=== PATIENT | female | born 1930 | race Caucasian/White ===

== ENCOUNTER 2018-08-14 10:47 | Inpatient (IN) | payer MEDICARE ==
[2018-08-14] MEDS ORDERED: SODIUM CHLORIDE 0.9% 1,000 ML IV STA (11:19)
[2018-08-14] MEDS ORDERED: SODIUM CHLORIDE 0.9% 500 ML 500 ML IV STA (11:19)
--- NOTE | 2018-08-14 11:22 | ED ---
General Adult HPI - General Chief complaint: Weakness Stated complaint: Weakness/Pain Time Seen by Provider: 08/14/18 10:50 Source: family, RN notes reviewed Mode of arrival: EMS Limitations: altered mental status - History of Present Illness Initial comments: Patient's an 87-year-old female presented to the emergency room today by EMS, the chief complaint of increased weakness past week. Family at bedside stating that they've noticed that she's had a difficult time with ambulation this past week. Patient does admit that she's had some soreness to her feet. She does admit that she's noticed that she has had some increased weakness with ambulation and trying to get around. Patient denies any pain at this time. Denies any recent cough or congestion. Patient denies any recent fever, chills, shortness of breath, chest pain, back pain, abdominal pain, nausea or vomiting, numbness or tingling, headaches or visual changes, or any other complaints. - Related Data Home Medications Medication Instructions Recorded Confirmed Acetaminophen Tab [Tylenol] 500 mg PO DAILY 08/14/18 08/14/18 Cyanocobalamin (Vitamin B-12) 2,500 mcg PO DAILY 08/14/18 08/14/18 [Vitamin B12] Levothyroxine Sodium [Synthroid] 50 mcg PO DAILY 08/14/18 08/14/18 Lisinopril 20 mg PO DAILY 08/14/18 08/14/18 Sertraline [Zoloft] 25 mg PO DAILY 08/14/18 08/14/18 Allergies Allergy/AdvReac Type Severity Reaction Status Date / Time No Known Allergies Allergy Verified 08/14/18 11:10 Review of Systems ROS Statement: Those systems with pertinent positive or pertinent negative responses have been documented in the HPI. ROS Other: All systems not noted in ROS Statement are negative. Past Medical History Past Medical History: Hypertension, Memory Impairment, Thyroid Disorder History of Any Multi-Drug Resistant Organisms: None Reported Past Surgical History: Hernia Repair, Hysterectomy Additional Past Surgical History / Comment(s): vein stripping, uterine prolapse repair Past Psychological History: Anxiety Smoking Status: Never smoker Past Alcohol Use History: None Reported Past Drug Use History: None Reported General Exam - General Exam Comments Initial Comments: General: The patient is awake and alert, in no distress, and does not appear acutely ill. Eye: Pupils are equal, round and reactive to light, extra-ocular movements are intact. No nystagmus. There is normal conjunctiva bilaterally. No signs of icterus. Ears, nose, mouth and throat: There are moist mucous membranes and no oral lesions. Neck: The neck is supple Cardiovascular: There is a regular rate and rhythm. No murmur, rub or gallop is appreciated. Respiratory: Lungs are clear to auscultation, respirations are non-labored, breath sounds are equal. No wheezes, stridor, rales, or rhonchi. Gastrointestinal: Admits soft nontender. Musculoskeletal: Normal ROM, no tenderness. Strength 5/5. Sensation intact. Radial/pedal pulses equal bilaterally 2+. Neurological: A&O x 3. CN II-XII intact, There are no obvious motor or sensory deficits. Coordination appears grossly intact. Speech is normal. Skin: Skin is warm and dry and no rashes or lesions are noted. Psychiatric: Cooperative, appropriate mood & affect, normal judgment. Limitations: altered mental status Course Vital Signs 08/14/18 10:51 Temperature 98 F Pulse Rate 74 Respiratory 18 Rate Blood Pressure 120/85 O2 Sat by Pulse 96 Oximetry EKG Findings - EKG Comments: EKG Findings:: EKG performed at 1055: Shows A. fib at 88 bpm. QRS 102. QT/QTc 402/486. No acute ST changes. No previous EKG to compare. Medical Decision Making - Medical Decision Making Patient's labs been reviewed does show evidence for urinary tract infection. Patient does admit to increased weakness this past week with difficult time with ambulation. Patient's EKG shows evidence for atrophic relation. No old EKG to compare. Patient started on antibiotics Rocephin here in the emergency room for UTI. Started on low-dose heparin for A. fib. Case discussed with attending physician Dr. Alvarado who did discuss case with admitting physician Dr. Emanuel with the patient consult cardiology. - Lab Data Result diagrams: 08/14/18 11:03 08/14/18 11:03 Lab Results 08/14/18 08/14/18 08/14/18 Range/Units 11:03 11:03 11:03 WBC 9.2 (3.8-10.6) k/uL RBC 3.38 L (3.80-5.40) m/uL Hgb 11.6 (11.4-16.0) gm/dL Hct 37.4 (34.0-46.0) % MCV 110.7 H (80.0-100.0) fL MCH 34.2 (25.0-35.0) pg MCHC 30.9 L (31.0-37.0) g/dL RDW 14.7 (11.5-15.5) % Plt Count 424 (150-450) k/uL Neutrophils % 83 % Lymphocytes % 7 % Monocytes % 7 % Eosinophils % 1 % Basophils % 0 % Neutrophils # 7.7 (1.3-7.7) k/uL Lymphocytes # 0.6 L (1.0-4.8) k/uL Monocytes # 0.7 (0-1.0) k/uL Eosinophils # 0.1 (0-0.7) k/uL Basophils # 0.0 (0-0.2) k/uL Manual Slide Review Performed Macrocytosis Marked PT 10.3 (9.0-12.0) sec INR 1.0 (<1.2) APTT 22.4 (22.0-30.0) sec Sodium (137-145) mmol/L Potassium (3.5-5.1) mmol/L Chloride (98-107) mmol/L Carbon Dioxide (22-30) mmol/L Anion Gap mmol/L BUN (7-17) mg/dL Creatinine (0.52-1.04) mg/dL Est GFR (CKD-EPI)AfAm (>60 ml/min/1.73 sqM) Est GFR (CKD-EPI)NonAf (>60 ml/min/1.73 sqM) Glucose (74-99) mg/dL Calcium (8.4-10.2) mg/dL Total Bilirubin (0.2-1.3) mg/dL AST (14-36) U/L ALT (9-52) U/L Alkaline Phosphatase (38-126) U/L Total Creatine Kinase 355 H (30-135) U/L CK-MB (CK-2) 5.2 H (0.0-2.4) ng/mL CK-MB (CK-2) Rel Index 1.5 Troponin I 0.012 (0.000-0.034) ng/mL Total Protein (6.3-8.2) g/dL Albumin (3.5-5.0) g/dL Urine Color Urine Appearance (Clear) Urine pH (5.0-8.0) Ur Specific [place] (1.001-1.035) Urine Protein (Negative) Urine Glucose (UA) (Negative) Urine Ketones (Negative) Urine Blood (Negative) Urine Nitrite (Negative) Urine Bilirubin (Negative) Urine Urobilinogen (<2.0) mg/dL Ur Leukocyte Esterase (Negative) Urine WBC (0-5) /hpf Triple Phos Crystals (None) /hpf Amorphous Sediment (None) /hpf Urine Bacteria (None) /hpf Urine Mucus (None) /hpf 08/14/18 08/14/18 Range/Units 11:03 11:40 WBC (3.8-10.6) k/uL RBC (3.80-5.40) m/uL Hgb (11.4-16.0) gm/dL Hct (34.0-46.0) % MCV (80.0-100.0) fL MCH (25.0-35.0) pg MCHC (31.0-37.0) g/dL RDW (11.5-15.5) % Plt Count (150-450) k/uL Neutrophils % % Lymphocytes % % Monocytes % % Eosinophils % % Basophils % % Neutrophils # (1.3-7.7) k/uL Lymphocytes # (1.0-4.8) k/uL Monocytes # (0-1.0) k/uL Eosinophils # (0-0.7) k/uL Basophils # (0-0.2) k/uL Manual Slide Review Macrocytosis PT (9.0-12.0) sec INR (<1.2) APTT (22.0-30.0) sec Sodium 138 (137-145) mmol/L Potassium 4.7 (3.5-5.1) mmol/L Chloride 106 (98-107) mmol/L Carbon Dioxide 25 (22-30) mmol/L Anion Gap 7 mmol/L BUN 16 (7-17) mg/dL Creatinine 0.56 (0.52-1.04) mg/dL Est GFR (CKD-EPI)AfAm >90 (>60 ml/min/1.73 sqM) Est GFR (CKD-EPI)NonAf 83 (>60 ml/min/1.73 sqM) Glucose 97 (74-99) mg/dL Calcium 8.9 (8.4-10.2) mg/dL Total Bilirubin 1.3 (0.2-1.3) mg/dL AST 30 (14-36) U/L ALT 21 (9-52) U/L Alkaline Phosphatase 48 (38-126) U/L Total Creatine Kinase (30-135) U/L CK-MB (CK-2) (0.0-2.4) ng/mL CK-MB (CK-2) Rel Index Troponin I (0.000-0.034) ng/mL Total Protein 5.8 L (6.3-8.2) g/dL Albumin 3.1 L (3.5-5.0) g/dL Urine Color Yellow Urine Appearance Turbid H (Clear) Urine pH 8.0 (5.0-8.0) Ur Specific [place] 1.014 (1.001-1.035) Urine Protein Trace H (Negative) Urine Glucose (UA) Negative (Negative) Urine Ketones 1+ H (Negative) Urine Blood Negative (Negative) Urine Nitrite Positive H (Negative) Urine Bilirubin Negative (Negative) Urine Urobilinogen 2.0 (<2.0) mg/dL Ur Leukocyte Esterase Large H (Negative) Urine WBC 10 H (0-5) /hpf Triple Phos Crystals Rare H (None) /hpf Amorphous Sediment Occasional H (None) /hpf Urine Bacteria Rare H (None) /hpf Urine Mucus Rare H (None) /hpf Disposition Clinical Impression: A-fib, UTI (urinary tract infection), Weakness Disposition: ADMITTED IP TO THIS HOSP Condition: Stable Is patient prescribed a controlled substance at d/c from ED?: No Referrals: Jose Espino MD [Primary Care Provider] - 1-2 days Time of Disposition: 13:34
[2018-08-14 11:42] LABS: ALT 21 U/L (9-52); AST 30 U/L (14-36); Albumin 3.1 g/dL (3.5-5.0); Alkaline Phosphatase 48 U/L (38-126); Anion Gap 7 mmol/L; Blood Urea Nitrogen 16 mg/dL (7-17); Calcium 8.9 mg/dL (8.4-10.2); Carbon Dioxide 25 mmol/L (22-30); Chloride 106 mmol/L (98-107); Glucose 97 mg/dL (74-99); Potassium 4.7 mmol/L (3.5-5.1); Sodium 138 mmol/L (137-145); Total Bilirubin 1.3 mg/dL (0.2-1.3); Total Protein 5.8 g/dL (6.3-8.2)
[2018-08-14 11:45] LABS: Partial Thromboplastin Time 22.4 sec (22.0-30.0); Prothrombin Time 10.3 sec (9.0-12.0)
[2018-08-14 11:52] LABS: Basophils % (A) 0 %; Eosinophils # (A) 0.1 k/uL (0-0.7); Eosinophils % (A) 1 %; HCT 37.4 % (34.0-46.0); HGB 11.6 gm/dL (11.4-16.0); Lymphocytes # (A) 0.6 k/uL (1.0-4.8); Lymphocytes % (A) 7 %; MCH 34.2 pg (25.0-35.0); MCHC 30.9 g/dL (31.0-37.0); MCV 110.7 fL (80.0-100.0); Macrocytosis Marked; Mean Platelet Volume 7.3; Monocytes # (A) 0.7 k/uL (0-1.0); Monocytes % (A) 7 %; Neutrophils # (A) 7.7 k/uL (1.3-7.7); Neutrophils % (A) 83 %; Platelet Count 424 k/uL (150-450); RBC 3.38 m/uL (3.80-5.40); RDW 14.7 % (11.5-15.5); WBC 9.2 k/uL (3.8-10.6)
[2018-08-14 11:59] LABS: Creatine Kinase MB 5.2 ng/mL (0.0-2.4); Troponin I 0.012 ng/mL (0.000-0.034)
[2018-08-14 12:35] LABS: Amorphous Sediment,Urine Occasional /hpf; Appearance,Urine Turbid (Clear); Bacteria,Urine Rare /hpf; Bilirubin,Urine Negative (Negative); Blood,Urine Negative (Negative); Color,Urine Yellow; Glucose,Urine (UA) Negative (Negative); Ketones,Urine 1+ (Negative); Leukocyte Esterase,Urine Large (Negative); Mucus,Urine Rare /hpf; Nitrite,Urine Positive (Negative); Protein,Urine Trace (Negative); Specific Gravity,Urine 1.014 (1.001-1.035); Triple Phosphate Crystal,Urine Rare /hpf
[2018-08-14] MEDS ORDERED: ACETAMINOPHEN TAB 325 MG TAB PO STA (12:53)
--- NOTE | 2018-08-14 12:55 | XR ---
EXAMINATION TYPE: XR chest 2V DATE OF EXAM: 08/14/2018 HISTORY: weakness. REFERENCE: NONE. FINDINGS: The lungs are overinflated. There are senescent changes throughout the lungs. The heart is enlarged. Pleural spaces are clear. IMPRESSION: 1. COPD. 2. CARDIOMEGALY. 3. INTERSTITIAL CHANGE. THIS IS LIKELY CHRONIC.
--- NOTE | 2018-08-14 13:20 | XR ---
EXAMINATION TYPE: XR Hip LT and AP Pelvis , 3 VIEWS DATE OF EXAM ORDERED: 08/14/2018 HISTORY: Pain. COMPARISON: None. FINDINGS: There are degenerative changes in the lower lumbar spine as well as in both hips. No fractu re or dislocation is identified. IMPRESSION: 1. NO ACUTE OSSEOUS LESION. 2. DEGENERATIVE CHANGE.
[2018-08-14] MEDS ORDERED: ACETAMINOPHEN TAB 325 MG TAB PO PRN ×2 (13:34→13:38)
[2018-08-14] MEDS ORDERED: SODIUM CHLORIDE 0.9% 1,000 ML IV ONE (13:34)
[2018-08-14] MEDS ORDERED: NALOXONE 0.4 MG/ML 1 ML VIAL IV PRN (13:37)
[2018-08-14] MEDS ORDERED: HEPARIN SODIUM,PORCINE 5,000 UNIT/ML 1 ML VIAL IV ONE (16:44)
[2018-08-14] MEDS ORDERED: HEPARIN SOD,PORK IN 0.45% NACL 25,000 UNIT in 0.45% NACL 1 250ML.BAG IV SCH (16:45)
[2018-08-14 18:19] LABS: Creatine Kinase 259 U/L (30-135)
[2018-08-14 18:33] LABS: Creatine Kinase MB 3.8 ng/mL (0.0-2.4); Troponin I <0.012 ng/mL (0.000-0.034)
[2018-08-14 23:45] LABS: Creatine Kinase 241 U/L (30-135)
[2018-08-14 23:58] LABS: Creatine Kinase MB 3.1 ng/mL (0.0-2.4); Troponin I <0.012 ng/mL (0.000-0.034)
[2018-08-15 05:41] LABS: Basophils % (A) 0 %; Eosinophils # (A) 0.2 k/uL (0-0.7); Eosinophils % (A) 2 %; HCT 39.7 % (34.0-46.0); HGB 12.4 gm/dL (11.4-16.0); Lymphocytes # (A) 0.7 k/uL (1.0-4.8); Lymphocytes % (A) 8 %; MCH 34.8 pg (25.0-35.0); MCHC 31.2 g/dL (31.0-37.0); MCV 111.8 fL (80.0-100.0); Mean Platelet Volume 7.1; Monocytes # (A) 0.5 k/uL (0-1.0); Monocytes % (A) 5 %; Neutrophils # (A) 7.6 k/uL (1.3-7.7); Neutrophils % (A) 84 %; Platelet Count 434 k/uL (150-450); RBC 3.55 m/uL (3.80-5.40); RDW 14.7 % (11.5-15.5); WBC 9.1 k/uL (3.8-10.6)
[2018-08-15 05:48] LABS: ALT 28 U/L (9-52); AST 22 U/L (14-36); Alkaline Phosphatase 60 U/L (38-126); Anion Gap 7 mmol/L; Blood Urea Nitrogen 13 mg/dL (7-17); Calcium 8.9 mg/dL (8.4-10.2); Carbon Dioxide 27 mmol/L (22-30); Chloride 104 mmol/L (98-107); Cholesterol 169 mg/dL (<200); Glucose 100 mg/dL (74-99); HDL Cholesterol 49 mg/dL (40-60); LDL Cholesterol,Calculated 103 mg/dL (0-99); Macrocytosis Marked; Sodium 138 mmol/L (137-145); Total Protein 5.8 g/dL (6.3-8.2); Triglycerides 84 mg/dL (<150)
[2018-08-15] MEDS ORDERED: LEVOTHYROXINE 50 MCG TAB PO SCH (06:30)
[2018-08-15] MEDS: CYANOCOBALAMIN 500 MCG TAB PO SCH (08:16)
[2018-08-15] MEDS: LISINOPRIL 20 MG TAB PO SCH (08:16)
[2018-08-15] MEDS ORDERED: SERTRALINE 25 MG TAB PO SCH (09:00)
--- NOTE | 2018-08-15 09:56 | P.CRDCN ---
History of Present Illness Consult date: 08/15/18 Requesting physician: Nahun Emanuel Reason for Consult (text): Arrhythmia Chief complaint: Weakness History of present illness: This is an 87-year-old female most of the history was obtained from the medical record as she is quite confused this morning. Apparently the patient was brought to the emergency room because of increased weakness, family also noticed that she was having a difficult time with ambulation in the past week. A cardiology consultation was initially requested on this patient because of atrial fibrillation. The initial EKG was interpreted as the atrial fibrillation in the emergency room, appears to be in normal sinus rhythm with PACs evidence of sinus arrhythmia and intermittently on the rhythm strips it appears that the patient may have a Wenckebach rhythm. Her initial EKG on presentation here showed a normal sinus rhythm with PACs. Chest x-ray showed COPD, cardiomegaly, interstitial change which is likely chronic. Blood pressure on arrival here 120/80, heart rate in the 70s, 96% on room air. White blood cell count 9.1, hemoglobin 12.4, platelet count 434. Sodium 138, potassium 4.0, BUN 13, creatinine 0.5. Troponins are negative 3. Urinalysis shows positive UTI. At the time of my examination this morning, patient is quite confused, she knows she is in the hospital but is unsure of why she is here. She states that she is just here to visit with some of her friends. She denies any shortness of breath, no weakness, no palpitations or chest discomfort. Past Medical History Past Medical History: Hypertension, Memory Impairment, Thyroid Disorder History of Any Multi-Drug Resistant Organisms: None Reported Past Surgical History: Hernia Repair, Hysterectomy Additional Past Surgical History / Comment(s): vein stripping, uterine prolapse repair, 3 weeks ago outpatient cyst/hemmorhoid removal Past Anesthesia/Blood Transfusion Reactions: No Reported Reaction Past Psychological History: Anxiety Smoking Status: Never smoker Past Alcohol Use History: None Reported Past Drug Use History: None Reported - Past Family History Father Additional Family Medical History / Comment(s): Colon cancer Sister(s) Additional Family Medical History / Comment(s): Colon cancer & another sister lung cancer Medications and Allergies Home Medications Medication Instructions Recorded Confirmed Type Acetaminophen Tab [Tylenol] 500 mg PO DAILY 08/14/18 08/14/18 History Cyanocobalamin (Vitamin B-12) 2,500 mcg PO DAILY 08/14/18 08/14/18 History [Vitamin B12] Levothyroxine Sodium [Synthroid] 50 mcg PO DAILY 08/14/18 08/14/18 History Lisinopril 20 mg PO DAILY 08/14/18 08/14/18 History Sertraline [Zoloft] 25 mg PO DAILY 08/14/18 08/14/18 History Allergies Allergy/AdvReac Type Severity Reaction Status Date / Time No Known Allergies Allergy Verified 08/14/18 11:10 Physical Exam Vitals: Vital Signs Temp Pulse Pulse Resp BP BP Pulse Ox 08/15/18 08:00 98.6 F 72 16 152/86 93 L 08/15/18 04:00 97.0 F L 75 18 167/74 97 08/15/18 00:00 97.4 F L 62 18 140/62 95 08/14/18 20:00 97.7 F 70 18 120/70 98 08/14/18 17:50 97 16 129/62 93 L 08/14/18 17:15 64 18 140/97 98 08/14/18 14:00 78 12 118/73 96 08/14/18 13:30 78 14 130/61 98 08/14/18 12:30 58 L 18 130/85 97 08/14/18 12:00 63 14 117/58 97 08/14/18 11:30 68 10 L 106/79 98 08/14/18 11:00 110 H 20 120/85 93 L 08/14/18 10:51 98 F 74 18 120/85 96 Intake and Output 08/14/18 08/15/18 08/15/18 22:59 06:59 14:59 Intake Total 360 709.313 Output Total 300 Balance 360 409.313 Intake: IV 600 0.9 600 Intake, IV Titration 109.313 Amount Heparin Sod,Pork in 0.45% 109.313 NaCl 25,000 unit In 0.45 % NaCl 1 250ml.bag @ 12 UNITS/KG/HR 7.62 mls/hr IV .Q24H [facility] Rx#: [id number] Oral 360 Output: Urine 300 Other: Voiding Method Toilet Toilet # Voids 2 2 Weight 61.7 kg Assessment and plan #1 symptoms of progressive weakness, mental status changes, no evidence of any syncopal episodes. Symptoms could be secondary to UTI #2 arrhythmia, EKG initially interpreted as atrial fibrillation, it appears patient is in normal sinus rhythm with PACs, intermittent Wenchebach rhythm. #3 hypothyroidism #4 hypertension Plan EKGs and rhythm strips have been reviewed, no evidence of any atrial fibrillation. We will check a TSH level and obtain an echocardiogram with Doppler study. Discontinue IV heparin. DNP note has been reviewed, I agree with a documented findings and plan of care. Patient was seen and examined. Results 08/15/18 05:28 08/15/18 05:28 Cardiac Enzymes 08/14/18 08/14/18 08/14/18 Range/Units 11:03 11:03 17:45 AST 30 (14-36) U/L CK-MB (CK-2) 5.2 H 3.8 H (0.0-2.4) ng/mL Troponin I 0.012 <0.012 (0.000-0.034) ng/mL 08/14/18 08/15/18 Range/Units 22:41 05:28 AST 22 (14-36) U/L CK-MB (CK-2) 3.1 H (0.0-2.4) ng/mL Troponin I <0.012 (0.000-0.034) ng/mL Coagulation 08/14/18 08/14/18 08/15/18 Range/Units 11:03 22:41 05:28 PT 10.3 (9.0-12.0) sec APTT 22.4 30.4 H 32.5 H (22.0-30.0) sec Lipids 08/15/18 Range/Units 05:28 Triglycerides 84 (<150) mg/dL Cholesterol 169 (<200) mg/dL HDL Cholesterol 49 (40-60) mg/dL CBC 08/14/18 08/15/18 Range/Units 11:03 05:28 WBC 9.2 9.1 (3.8-10.6) k/uL RBC 3.38 L 3.55 L (3.80-5.40) m/uL Hgb 11.6 12.4 (11.4-16.0) gm/dL Hct 37.4 39.7 (34.0-46.0) % Plt Count 424 434 (150-450) k/uL Comprehensive Metabolic Panel 08/14/18 08/15/18 Range/Units 11:03 05:28 Sodium 138 138 (137-145) mmol/L Potassium 4.7 4.0 (3.5-5.1) mmol/L Chloride 106 104 (98-107) mmol/L Carbon Dioxide 25 27 (22-30) mmol/L BUN 16 13 (7-17) mg/dL Creatinine 0.56 0.53 (0.52-1.04) mg/dL Glucose 97 100 H (74-99) mg/dL Calcium 8.9 8.9 (8.4-10.2) mg/dL AST 30 22 (14-36) U/L ALT 21 28 (9-52) U/L Alkaline Phosphatase 48 60 (38-126) U/L Total Protein 5.8 L 5.8 L (6.3-8.2) g/dL Albumin 3.1 L 3.0 L (3.5-5.0) g/dL Current Medications Generic Name Dose Route Start Last Admin Trade Name Oscarq PRN Reason Stop Dose Admin Acetaminophen 650 mg 08/14/18 13:38 Tylenol Tab PO Q6HR PRN Pain Cyanocobalamin 2,500 mcg 08/15/18 09:00 08/15/18 08:16 Vitamin B-12 PO 2,500 mcg DAILY [facility] Administration Heparin Sodium/Sodium Chloride 250 mls @ 7.62 mls/hr 08/14/18 16:45 08/15/18 05:49 25,000 unit/ Sodium Chloride IV 18 units/kg/hr .Q24H [facility] 11.43 mls/hr Titration Protocol 12 UNITS/KG/HR Levothyroxine Sodium 50 mcg 08/15/18 06:30 08/15/18 05:54 Synthroid PO 50 mcg DAILY@0630 [facility] Administration Lisinopril 20 mg 08/15/18 09:00 08/15/18 08:16 Zestril PO 20 mg DAILY [facility] Administration Naloxone HCl 0.2 mg 08/14/18 13:37 Narcan IV Q2M PRN Opioid Reversal Sertraline HCl 25 mg 08/15/18 09:00 08/15/18 08:16 Zoloft PO 25 mg DAILY [facility] Administration Intake and Output 08/14/18 08/15/18 08/15/18 22:59 06:59 14:59 Intake Total 360 709.313 Output Total 300 Balance 360 409.313 Intake: IV 600 0.9 600 Intake, IV Titration 109.313 Amount Heparin Sod,Pork in 0.45% 109.313 NaCl 25,000 unit In 0.45 % NaCl 1 250ml.bag @ 12 UNITS/KG/HR 7.62 mls/hr IV .Q24H [facility] Rx#: [id number] Oral 360 Output: Urine 300 Other: Voiding Method Toilet Toilet # Voids 2 2 Weight 61.7 kg 08/15/18 05:28 08/15/18 05:28
[2018-08-15 12:29] LABS: T4, Free (Free Thyroxine) 1.66 ng/dL (0.78-2.19)
--- NOTE | 2018-08-15 16:59 | ECHOF ---
Referral Reason:arrythmia MEASUREMENTS -------- HEIGHT: 167.6 cm WEIGHT: 61.7 kg BP: 152/86 IVSd: 1.1 cm (0.6 - 1.1) LVIDd: 4.3 cm (3.9 - 5.3) LVPWd: 1.0 cm (0.6 - 1.1) IVSs: 1.7 cm LVIDs: 2.9 cm LVPWs: 1.5 cm LA Diam: 3.5 cm (2.7 - 3.8) RVIDd: 3.6 cm (< 3.3) LAESV Index (A-L): 35.44 ml/m Ao Diam: 3.2 cm (2.0 - 3.7) AV Cusp: 2.0 cm (1.5 - 2.6) EPSS: 0.4 cm MV E Matias: 0.98 m/s MV DecT: 333 ms MV A Matias: 1.01 m/s MV E/A Ratio: 0.97 AV maxP.74 mmHg AV meanP.32 mmHg RAP: 5.00 mmHg RVSP: 34.51 mmHg MV EF SLOPE: 86.65 mm/s (70 - 150) MV EXCURSION: 13.99 mm (> 18.000) FINDINGS -------- Sinus rhythm with extra systolic beats. This was a technically good study. The left ventricular size is normal. There is borderline concentric left ventricular hypertrophy. Overall left ventricular systolic function is normal with, an EF between 55 - 60 %. The right ventricle is mildly enlarged. LA is moderately dilated 34-39 ml/m2 The right atrium is normal in size. There is mild aortic valve sclerosis. Mild mitral regurgitation is present. Moderate to severe tricuspid regurgitation present. There is mild pulmonary hypertension. The rig ht ventricular systolic pressure, as measured by Doppler, is 34.51mmHg. Trace/mild (physiologic) pulmonic regurgitation. The aortic root size is normal. Normal inferior vena cava with normal inspiratory collapse consistent with estimated right atrial pre ssure of 5 mmHg. There is no pericardial effusion. CONCLUSIONS -------- 1. Sinus rhythm with extra systolic beats. 2. This was a technically good study. 3. The left ventricular size is normal. 4. There is borderline concentric left ventricular hypertrophy. 5. Overall left ventricular systolic function is normal with, an EF between 55 - 60 %. 6. The right ventricle is mildly enlarged. 7. LA is moderately dilated 34-39 ml/m2 8. The right atrium is normal in size. 9. There is mild aortic valve sclerosis. 10. Mild mitral regurgitation is present. 11. Moderate to severe tricuspid regurgitation present. 12. There is mild pulmonary hypertension. 13. The right ventricular systolic pressure, as measured by Doppler, is 34.51mmHg. 14. Trace/mild (physiologic) pulmonic regurgitation. 15. The aortic root size is normal. 16. Normal inferior vena cava with normal inspiratory collapse consistent with estimated right atrial pressure of 5 mmHg. 17. There is no pericardial effusion. [place]: Filomena Scruggs RDCS
--- NOTE | 2018-08-16 00:17 | P.HPIM ---
History of Present Illness H&P Date: 08/15/18 Chief Complaint: Difficulty walking History of presenting complaint: This is a pleasant 87-year-old patient who follows with Dr. Sherman. Patient's family members are present with her. Patient chronic stable medical conditions include hypertension, dementia, hypothyroid, arthritis. Patient has been noticed to be walking slower and slower. Also has been having urinary incontinence. Appetite is last 1 week has gone on a bit. Patient is able to answer simple questions. But otherwise rather confused. No fever or chills reported. Patient was initially thought to have atrial fibrillation but is not part of Wenckebach phenomena as per cardiology. Patient does have pain in her feet. And refuses to wear any other footwear except for her crocs. She is incontinent of urine. Bowels are fine. Some baseline anxiety. No depression. Patient has been active all her life. Review of systems: GEN.: None EYES: None HEENT: None NECK: None RESPIRATORY: None CARDIOVASCULAR: None GASTROINTESTINAL: None GENITOURINARY: Incontinent MUSCULOSKELETAL: Pain in the joints especially feet LYMPHATICS: None HEMATOLOGICAL: None PSYCHIATRY: Forgetful NEUROLOGICAL: None Past medical history: Essential hypertension, dementia, hypothyroid, B12 deficiency, anxiety, osteoarthritis Family history: Colon cancer Physical examination: VITAL SIGNS: 98, 74, 18, 120/85, 96% room air GENERAL: Average built, laying in bed, playing with a blanket, comfortable. EYES: Pupils equal. Conjunctiva normal. HEENT: External appearance of nose and ears normal, oral cavity grossly normal. NECK: JVD not raised; masses not palpable. HEART: First and second heart sounds are normal; no edema. LUNGS: Respiratory rate normal; clear to auscultation. ABDOMEN: Soft, nontender, liver spleen not palpable, no masses palpable. LYMPHATICS: No lymph nodes palpable in the axilla and neck. PSYCH: Patient also name. Does not know where she is a Y she is here, does not know the year or the seasonl. NEUROLOGICAL: Cranial nerves grossly intact; no facial asymmetry, power and sensation grossly intact MUSCULOSKELETAL: Evidence of severe OA special in the feet, with a high arch, hammertoes. Investigations: Reviewed in the clinical context White count 9.2, hemoglobin 11.6, potassium 4.7, 2-D echo-year 50-60%, moderate to severe tricuspid regurgitation Troponin 3 negative, EKG-personally reviewed by me shows Wenckebach phenomena TSH 6.450, UA positive Assessment: -Severe cognitive impairment suspect underlying Alzheimer's dementia late onset type. -Wenckebach phenomena. -Moderate to severe tricuspid regurgitation nondramatic -Chronic B12 deficiency -Essential hypertension -Hypothyroid with under replacement -Chronic urinary incontinence -Chronic progressively worsening gait dysfunction due to severe osteoarthritis of the feet -Acute UTI likely from cystitis Plan: Had a lengthy discussion with the patient's family members. We'll check patient 's computed tomography scan of the brain rule out any subdural hematoma. Will DC patient's Zoloft. Did discuss about patient's footwear which is important. Spoke with Aleena the social insurance analyst is looking into inpatient rehab. Encourage oral intake. Add antibiotics. PT OT to evaluate Past Medical History Past Medical History: Hypertension, Memory Impairment, Thyroid Disorder History of Any Multi-Drug Resistant Organisms: None Reported Past Surgical History: Hernia Repair, Hysterectomy Additional Past Surgical History / Comment(s): vein stripping, uterine prolapse repair, 3 weeks ago outpatient cyst/hemmorhoid removal Past Anesthesia/Blood Transfusion Reactions: No Reported Reaction Past Psychological History: Anxiety Smoking Status: Never smoker Past Alcohol Use History: None Reported Past Drug Use History: None Reported - Past Family History Father Additional Family Medical History / Comment(s): Colon cancer Sister(s) Additional Family Medical History / Comment(s): Colon cancer & another sister lung cancer Medications and Allergies Home Medications Medication Instructions Recorded Confirmed Type Acetaminophen Tab [Tylenol] 500 mg PO DAILY 08/14/18 08/14/18 History Cyanocobalamin (Vitamin B-12) 2,500 mcg PO DAILY 08/14/18 08/14/18 History [Vitamin B12] Levothyroxine Sodium [Synthroid] 50 mcg PO DAILY 08/14/18 08/14/18 History Lisinopril 20 mg PO DAILY 08/14/18 08/14/18 History Sertraline [Zoloft] 25 mg PO DAILY 08/14/18 08/14/18 History Allergies Allergy/AdvReac Type Severity Reaction Status Date / Time No Known Allergies Allergy Verified 08/14/18 11:10 Physical Exam Vitals: Vital Signs Temp Pulse Pulse Resp BP BP Pulse Ox 08/15/18 11:31 69 08/15/18 11:17 69 16 162/77 94 L 08/15/18 08:00 98.6 F 72 16 152/86 93 L 08/15/18 04:00 97.0 F L 75 18 167/74 97 08/15/18 00:00 97.4 F L 62 18 140/62 95 08/14/18 20:00 97.7 F 70 18 120/70 98 08/14/18 17:50 97 16 129/62 93 L 08/14/18 17:15 64 18 140/97 98 Intake and Output 08/14/18 08/15/18 08/15/18 22:59 06:59 14:59 Intake Total 360 709.313 360 Output Total 300 300 Balance 360 409.313 60 Intake: IV 600 0.9 600 Intake, IV Titration 109.313 Amount Heparin Sod,Pork in 0.45% 109.313 NaCl 25,000 unit In 0.45 % NaCl 1 250ml.bag @ 12 UNITS/KG/HR 7.62 mls/hr IV .Q24H [facility] Rx#: [id number] Oral 360 360 Output: Urine 300 300 Other: Voiding Method Toilet Toilet # Voids 2 2 Weight 61.7 kg Results CBC & Chem 7: 08/15/18 05:28 08/15/18 05:28 Labs: Abnormal Lab Results - Last 24 Hours (Table) 08/14/18 08/14/18 08/14/18 Range/Units 17:45 22:41 22:41 RBC (3.80-5.40) m/uL MCV (80.0-100.0) fL Lymphocytes # (1.0-4.8) k/uL APTT 30.4 H (22.0-30.0) sec Glucose (74-99) mg/dL Total Creatine Kinase 259 H 241 H (30-135) U/L CK-MB (CK-2) 3.8 H 3.1 H (0.0-2.4) ng/mL Total Protein (6.3-8.2) g/dL Albumin (3.5-5.0) g/dL LDL Cholesterol, Calc (0-99) mg/dL TSH (0.465-4.680) mIU/L 08/15/18 08/15/18 08/15/18 Range/Units 05:28 05:28 05:28 RBC 3.55 L (3.80-5.40) m/uL MCV 111.8 H (80.0-100.0) fL Lymphocytes # 0.7 L (1.0-4.8) k/uL APTT 32.5 H (22.0-30.0) sec Glucose 100 H (74-99) mg/dL Total Creatine Kinase (30-135) U/L CK-MB (CK-2) (0.0-2.4) ng/mL Total Protein 5.8 L (6.3-8.2) g/dL Albumin 3.0 L (3.5-5.0) g/dL LDL Cholesterol, Calc 103 H (0-99) mg/dL TSH (0.465-4.680) mIU/L 08/15/18 Range/Units 05:28 RBC (3.80-5.40) m/uL MCV (80.0-100.0) fL Lymphocytes # (1.0-4.8) k/uL APTT (22.0-30.0) sec Glucose (74-99) mg/dL Total Creatine Kinase (30-135) U/L CK-MB (CK-2) (0.0-2.4) ng/mL Total Protein (6.3-8.2) g/dL Albumin (3.5-5.0) g/dL LDL Cholesterol, Calc (0-99) mg/dL TSH 6.450 H (0.465-4.680) mIU/L Microbiology - Last 24 Hours (Table) 08/14/18 11:40 Urine Culture - Preliminary Urine,Voided Proteus spec Thrombosis Risk Factor Assmnt - Choose All That Apply Any of the Below Risk Factors Present?: Yes Each Factor Represents 1 point: Medical pt on bed rest Other Risk Factors: No Each Risk Factor Represents 3 Points: Age 75 years or older Other congenital or acquired thrombophilia - If yes, enter type in comment: No Thrombosis Risk Factor Assessment Total Risk Factor Score: 4 Thrombosis Risk Factor Assessment Level: Moderate Risk
[2018-08-16] MEDS: LEVOTHYROXINE 75 MCG TAB PO SCH (06:39)
--- NOTE | 2018-08-16 08:14 | CT ---
EXAMINATION TYPE: CT brain wo con DATE OF EXAM: 08/16/2018 COMPARISON: None HISTORY: Difficulty walking CT DLP: 1068.4 mGycm Automated exposure control for dose reduction was used. FINDINGS: Intracranial atherosclerotic changes noted. Extensive degenerative changes seen. Periventricular low attenuation noted. No acute hemorrhage or midline shift. Calvarium intact. IMPRESSION: DEGENERATIVE AND NONSPECIFIC WHITE MATTER CHANGES MOST TYPICAL OF REMOTE MICROVASCULAR ISCHEMIA. GREA TER CENTRAL COMPONENT TO THE DEGENERATIVE CHANGES RAISES THE POSSIBILITY OF NORMAL PRESSURE HYDROCEPH ALUS. CORRELATE CLINICALLY.
[2018-08-16] MEDS: ENOXAPARIN 40 MG/0.4 ML SYRINGE SQ SCH (08:43)
[2018-08-16] MEDS: CYANOCOBALAMIN 500 MCG TAB PO SCH (08:43)
[2018-08-16] MEDS: LISINOPRIL 20 MG TAB PO SCH (08:43)
--- NOTE | 2018-08-16 15:02 | P.PN ---
Subjective Progress Note Date: 08/16/18 This is an 87-year-old female most of the history was obtained from the medical record as she is quite confused this morning. Apparently the patient was brought to the emergency room because of increased weakness, family also noticed that she was having a difficult time with ambulation in the past week. A cardiology consultation was initially requested on this patient because of atrial fibrillation. The initial EKG was interpreted as the atrial fibrillation in the emergency room, appears to be in normal sinus rhythm with PACs evidence of sinus arrhythmia and intermittently on the rhythm strips it appears that the patient may have a Wenckebach rhythm. Her initial EKG on presentation here showed a normal sinus rhythm with PACs. Chest x-ray showed COPD, cardiomegaly, interstitial change which is likely chronic. Blood pressure on arrival here 120/80, heart rate in the 70s, 96% on room air. White blood cell count 9.1, hemoglobin 12.4, platelet count 434. Sodium 138, potassium 4.0, BUN 13, creatinine 0.5. Troponins are negative 3. Urinalysis shows positive UTI. At the time of my examination this morning, patient is quite confused, she knows she is in the hospital but is unsure of why she is here. She states that she is just here to visit with some of her friends. She denies any shortness of breath, no weakness, no palpitations or chest discomfort. 08/16/2018 Patient seen and examined this morning, very sleepy today, she was apparently at most of the night last night. Her daughters are at bedside. Echocardiogram with Doppler study was performed which revealed an ejection fraction of 55-60%. Moderate to severe tricuspid regurg. No evidence of any atrial fibrillation. Objective - Vital Signs Vital signs: Vital Signs Temp 98.1 F 08/16/18 08:00 Pulse 83 08/16/18 08:00 Resp 16 08/16/18 08:00 BP 156/90 08/16/18 08:00 Pulse Ox 92 L 08/16/18 08:00 Intake & Output 08/15/18 08/16/18 08/16/18 18:59 06:59 18:59 Intake Total 600 250 120 Output Total 600 Balance 0 250 120 Weight 60 kg Intake: IV 10 0.9 10 Oral 600 240 120 Output: Urine 600 Other: Voiding Method Toilet Toilet Diaper Diaper Incontinent Incontinent # Voids 6 1 - Exam PHYSICAL EXAMINATION: GENERAL: 89-year-old female in no acute distress at the time of my examination HEENT: Head is atraumatic, normocephalic. Pupils equal, round. Sclera anicteric. Conjunctiva are clear. Mucous membranes of the mouth are moist. Neck is supple. There is no elevated jugular venous pressure. Network Operations Project Manager Carotid bruit is heard. HEART EXAMINATION: Heart S1, S2 normal. No murmur or gallop heard. CHEST EXAMINATION: Lungs are clear to auscultation and precussion. No chest wall tenderness is noted on palpation or with deep breathing. ABDOMEN: Soft, nontender. Bowel sounds are heard. No organomegaly noted. EXTREMITIES: 2+ peripheral pulses with no evidence of peripheral edema and no calf tenderness noted. NEUROLOGIC [patient is sleepy, arouses to voice, oriented 1 - Labs CBC & Chem 7: 08/15/18 05:28 08/15/18 05:28 Labs: Microbiology - Last 24 Hours (Table) 08/14/18 11:40 Urine Culture - Final Urine,Voided Proteus mirabilis Assessment and Plan Plan: Assessment and plan #1 symptoms of progressive weakness, mental status changes, no evidence of any syncopal episodes. Symptoms could be secondary to UTI #2 arrhythmia, EKG initially interpreted as atrial fibrillation, it appears patient is in normal sinus rhythm with PACs, intermittent Wenchebach rhythm. #3 hypothyroidism #4 hypertension Plan EKGs and rhythm strips have been reviewed, no evidence of any atrial fibrillation. from cardiology's perspective, patient may be able to be discharged home once cleared by primary. We will follow her along with you now on an as-needed basis only, please don't hesitate to call with any questions. DNP note has been reviewed, I agree with a documented findings and plan of care. Patient was seen and examined.
[2018-08-16] MEDS: amLODIPine 5 MG TAB PO SCH (16:29)
--- NOTE | 2018-08-17 01:16 | PN ---
PROGRESS NOTE DATE OF SERVICE: August 16, 2018 PRESENTING COMPLAINT: Tired. INTERVAL HISTORY: This is a patient presents with a worsening cognitive impairment, weakness, difficulty walking. The patient's CT scan did come back showing suggestion of normal-pressure hydrocephalus. It may be noted that the patient's gait has become more shuffling because it and underlying dementia incontinence is compatible with normal-pressure hydrocephalus Keflex. The patient did not sleep too well last night and suicidal thought sleepy this morning. Daughter is present at the bedside. The patient's oral intake has been variable. REVIEW OF SYSTEMS: Could not be done because patient is rather sleepy right. CURRENT MEDICATIONS: Reviewed they include IV ceftriaxone for the UTI, Synthroid. PHYSICAL EXAMINATION: VITAL SIGNS: Temperature 97.2 pulse 111, respiration 14, blood pressure 140/79 pulse ox 93 percent room air general appearance lying in bed, tired eyes look good normal neck JVD not raised. Mass not felt respiratory effort normal lungs are clear cardiovascular 1st 2nd sounds no edema. ABDOMEN: Soft, nontender. Liver and spleen not palpable. PSYCHIATRY: Patient is rather sleepy right now. I did not sleep too well. INVESTIGATIONS: White count 9.1, hemoglobin 12.4 potassium 4.0 BUN creatinine is normal. TSH 6.4 T6 0.4. Urine cultures growing Proteus mirabilis assessments mirabilis CT scan of the brain suggestive of normal-pressure hydrocephalus assessment normal-pressure hydrocephalus. 1. Severe cognitive impairment as a combination of normal-pressure hydrocephalus and Alzheimer's dementia, late onset type. 2. Next Vancomycin back phenomena. 3. Moderate to severe tricuspid regurgitation, nonrheumatic. 4. Chronic B12 deficiency. 5. Essential hypertension. 6. Hypothyroid with under replacement. 7. Chronic urine incontinence. 8. Severe arthrosis osteoarthritis of the feet. 9. Acute urinary tract infection from Proteus mirabilis. PLAN: To improve patient's sleep pattern. We will start the patient on a small dose of Seroquel at night. The patient will be switched over to oral Keflex. generator worker is looking into placement. Prognosis is guarded. Care was discussed with the daughter at length at the bedside. MMODL / IJN: [id number] /
[2018-08-17] MEDS: QUEtiapine 25 MG TAB PO SCH ×2 (01:34→20:35)
[2018-08-17] MEDS: LEVOTHYROXINE 75 MCG TAB PO SCH (06:56)
[2018-08-17] MEDS: CYANOCOBALAMIN 500 MCG TAB PO SCH (11:08)
[2018-08-17] MEDS: ENOXAPARIN 40 MG/0.4 ML SYRINGE SQ SCH (11:08)
[2018-08-17] MEDS: LISINOPRIL 20 MG TAB PO SCH (11:08)
[2018-08-17] MEDS: amLODIPine 5 MG TAB PO SCH (11:08)
[2018-08-17] MEDS: CEPHALEXIN 250 MG CAP PO SCH ×3 (11:09→20:36)
--- NOTE | 2018-08-18 02:20 | PN ---
PROGRESS NOTE DATE OF SERVICE: 08/17/2018 PRESENTING COMPLAINT: Tired. INTERVAL HISTORY: This patient was seen by me yesterday evening. The patient's two daughters are present. The patient has normal-pressure hydrocephalus, some dementia. The patient did sleep well with Seroquel. Also being treated for UTI. Did tolerate some diet. REVIEW OF SYSTEMS: Done for constitutional, cardiovascular, GI, pulmonary; relevant findings as above. CURRENT MEDICATIONS: Reviewed that include Keflex, Synthroid, Seroquel. PHYSICAL EXAMINATION: Temperature 98.2 pulse 75, respirations 16, blood pressure 120/61, pulse 94 percent room air. GENERAL APPEARANCE: The patient is sitting up, playing with blocks on the table. EYES: Pupils are normal. NECK: JVD not raised. Mass not palpable. Respiratory effort normal. LUNGS: Clear. CARDIOVASCULAR: 1st and 2nd sounds no edema. ABDOMEN: Soft nontender liver is not palpable. PSYCHIATRY: Patient can answer some questions. INVESTIGATIONS: 1. Normal pressure hydrocephalous from today assessment normal-pressure hydrocephalus. 2. Moderate to severe tricuspid regurgitation, nonrheumatic. 3. Chronic B12 deficiency. 4. Essential hypertension. 5. Hypothyroidism. 6. Chronic urine incontinence. 7. Severe osteoarthritis of the feet. 8. Acute urinary tract infection from cystitis from Proteus mirabilis. 9. Medical debility. PLAN: Patient going to the [facility]CF tomorrow. Family is rather happy with how she is doing. The patient is being sleeping well. Will complete a course of Keflex. Should be able to go to the ECF/rehab tomorrow. MMODL / IJN: [id number] /
[2018-08-18] MEDS: LEVOTHYROXINE 75 MCG TAB PO SCH (06:47)
[2018-08-18] MEDS: CYANOCOBALAMIN 500 MCG TAB PO SCH (09:28)
[2018-08-18] MEDS: ENOXAPARIN 40 MG/0.4 ML SYRINGE SQ SCH (09:28)
[2018-08-18] MEDS: amLODIPine 5 MG TAB PO SCH (09:28)
[2018-08-18] MEDS: CEPHALEXIN 250 MG CAP PO SCH (09:28)
[2018-08-18] MEDS: LISINOPRIL 20 MG TAB PO SCH (09:28)
[2018-08-18 09:44] VITALS: TEMP 97
[2018-08-18 14:00] VITALS: BP 102/64; PULSE 63; RESP 17
--- NOTE | 2018-08-18 15:47 | DS ---
DISCHARGE SUMMARY DATE OF ADMISSION: 08/15/2018 DATE OF DISCHARGE: 08/18/2018 FINAL DIAGNOSES: 1. Normal-pressure hydrocephalus. 2. Moderate to severe tricuspid regurgitation, non-rheumatic. 3. Chronic B12 deficiency. 4. Essential hypertension. 5. Hypothyroidism. 6. Chronic urine incontinence. 7. Severe primary osteoarthritis of the feet. 8. Acute urinary tract infection from cystitis from Proteus mirabilis. 9. Medical debility. HOSPITAL COURSE: This patient presented with poor appetite, weak, tired, difficulty walking. Patient's 2D echocardiogram showed EF of 55% to 60%, moderate to severe tricuspid regurgitation. CT scan of the brain: findings were suggestive of normal-pressure hydrocephalus. The patient's dementia, gait dysfunction picture was compatible with the same. Patient's dose of Zoloft was discontinued. Sleep hygiene was discussed with the patient's family. Patient's TSH was slightly high; hence the dose of Synthroid was bumped up. Treated for the UTI. On the day of discharge, care was discussed with the daughter at the bedside. Questions were answered. Patient will probably also need long-term care down the road. PHYSICAL EXAMINATION: Temperature 97, pulse 74, respiration 18, blood pressure 102/64, pulse ox 94% on room air. PSYCH: Patient is able to answer simple questions. Comfortable in the chair. INVESTIGATIONS: White count 9.1, hemoglobin 12.4, potassium 4.0. TSH was 6.4. Dose of Synthroid was adjusted. Urine culture showing Proteus mirabilis. DISCHARGE MEDICATIONS: 1. Tylenol 500 mg p.o. daily. 2. Vitamin B12 2500 mcg p.o. daily. 3. Lisinopril 20 mg p.o. daily. 4. Keflex 250 mg p.o. t.i.d.; 9 capsules. 5. Synthroid 75 mcg a day. 6. Melatonin 3 mg at bedtime. 7. Norvasc 5 mg p.o. daily. DISPOSITION: Adriana. Follow up with Dr. Sethi at the [facility]. Follow up with Dr. Espino after discharge from [facility]. Prognosis guarded. MMODL / IJN: [id number] /
== END 2018-08-18 16:30 | DRG 57 ==
LOC: EC 10:47 → 3SCARD 12:47 → OBSVTOIN 08-15 15:24
PROVIDERS: ADMIT Hospitalist; ATTEND Hospitalist
DX: G91.2 (Idiopathic) normal pressure hydrocephalus (principal); N30.00 Acute cystitis without hematuria; B96.4 Proteus (mirabilis) (morganii) as the cause of diseases classified elsewhere; G30.1 Alzheimer's disease with late onset; I36.1 Nonrheumatic tricuspid (valve) insufficiency; E03.9 Hypothyroidism, unspecified; E53.8 Deficiency of other specified B group vitamins; F41.9 Anxiety disorder, unspecified; I10 Essential (primary) hypertension; I44.1 Atrioventricular block, second degree; I48.91 Unspecified atrial fibrillation; J44.9 Chronic obstructive pulmonary disease, unspecified; M19.072 Primary osteoarthritis, left ankle and foot; F02.80 Dementia in other diseases classified elsewhere, unspecified severity, without behavioral disturbance, psychotic disturbance, mood disturbance, and anxiety; M19.071 Primary osteoarthritis, right ankle and foot; Z79.890 Hormone replacement therapy; Z79.899 Other long term (current) drug therapy; Z80.0 Family history of malignant neoplasm of digestive organs; Z80.1 Family history of malignant neoplasm of trachea, bronchus and lung; Z90.710 Acquired absence of both cervix and uterus
CPT/HCPCS: 36415; 70450; 71046; 73502; 80053; 80061; 81001; 82550; 82553; 84439; 84443; 84484; 85025; 85610; 85730; 87077; 87086; 87186; 93005; 93306; 96361; 96365; 96367; 96376; 99285